=== PATIENT | male | born 1995 | race Caucasian/White ===

== ENCOUNTER 2017-09-03 09:53 | Emergency (ER) | payer SELFPAY ==
[2017-09-03 10:28] LABS: #Eosinphils 0.1 thou/uL (0.0-0.7); #Lymphocytes 1.9 thou/uL (1.20-3.40); #Monocytes 0.5 thou/uL (0.11-0.59); %Basophils 0.8 % (0.0-1.0); %Eosinophils 1.9 % (0.0-10.0); %Lymphocytes 28.6 % (21.0-51.0); %Monocytes 8.3 % (0.0-10.0); Hematocrit 50.5 % (42.0-52.0); Mean Platelet Volume 6.9 fL (7.4-10.4); White Blood Cell (WBC) Count 6.6 thou/uL (4.8-10.8)
[2017-09-03] MEDS ORDERED: Pantoprazole 40 MG VIAL ONE (10:38)
[2017-09-03] MEDS ORDERED: Morphine Sulfate 2 MG/ML SYRINGE ONE (10:38)
[2017-09-03] MEDS ORDERED: Ondansetron HCl/PF 4 MG/2 ML Vial ONE (10:38)
[2017-09-03 10:53] LABS: ALT (SGPT) 14 U/L (8-55); AST (SGOT) 11 U/L (5-34); Alkaline Phosphatase 78 U/L (40-150); Anion Gap 9 mmol/L (10-20); BUN (Urea Nitrogen) 13 mg/dL (8.9-20.6); Bilirubin, Total 0.6 mg/dL (0.2-1.2); Calc. Creatinine Clearance 0 mL/min (70-130); Calcium 10.1 mg/dL (7.8-10.44); Carbon Dioxide 32 mmol/L (22-29); Chloride 102 mmol/L (98-107); Estimated GFR-MDRD 88; Lipase 12 U/L (8-78); Protein, Total 7.3 g/dL (6.0-8.3)
[2017-09-03 11:16] LABS: Bilirubin Negative (Negative); Blood, Urine Negative (Negative); Glucose, Urine (Dipstick) Negative (Negative); Ketone, Urine Negative (Negative); Nitrite Negative (Negative); Protein, Urine (Dipstick) Negative (Neg-Trace); Urobilinogen 0.2 mg/dL (0.2-1.0)
--- NOTE | 2017-09-03 12:22 | CT ---
CT ABDOMEN AND PELVIS WITH CONTRAST: HISTORY: Worsening lower abdominal pain. FINDINGS: Lung bases are clear. No pericardial effusion. The appendix is visualized and is normal. There is mild thickening of the terminal ileum. There are also multiple areas of submucosal edema o f the proximal small bowel. Mild hyperenhancement of the mucosa of the sigmoid colon and rectum. The spleen, liver, gallbladder, pancreas, adrenal glands, and kidneys are unremarkable. The skeleton is unremarkable. IMPRESSION: 1. Mild mucosal irregularity of the terminal ileum with various areas of mucosal hyperenhancement o f the sigmoid colon and rectum can be seen with chronic inflammatory bowel disease. 2. Moderate submucosal edema and thickening of the wall of the proximal small bowel with some narro wing of the lumen which suggests enteritis. 3. Normal appendix and gallbladder. 4. No evidence of acute renal pathology. POS: [facility]
[2017-09-03] MEDS ORDERED: Dexamethasone 10 MG/ML VIAL ONE (12:53)
[2017-09-03] MEDS ORDERED: Iopamidol 370 76% 50 ML VIAL FS ONE (13:29)
[2017-09-03] MEDS ORDERED: ISOVUE-370 76%-LOCM 1 ML ONE (13:30)
== END 2017-09-03 13:00 | disposition home or self-care (01) ==
LOC: ERS 09:53
DX: K52.9 Noninfective gastroenteritis and colitis, unspecified (principal); J45.909 Unspecified asthma, uncomplicated
CPT/HCPCS: 74177; 80053; 81003; 83690; 85025; 96361; 96374; 96375; C9113; J1100; J2270; J2405

== ENCOUNTER 2017-09-07 19:29 | Emergency (ER) | payer SELFPAY ==
[2017-09-07] MEDS ORDERED: Morphine 2 MG/ML SYRINGE ONE (20:08)
[2017-09-07] MEDS ORDERED: Pantoprazole 40 MG VIAL ONE (20:09)
[2017-09-07] MEDS ORDERED: Ondansetron HCl/PF 4 MG/2 ML Vial ONE (20:09)
[2017-09-07 20:20] LABS: #Lymphocytes 1.2 thou/uL (1.20-3.40); #Monocytes 0.9 thou/uL (0.11-0.59); #Neutrophils 7.3 thou/uL (1.40-6.50); %Basophils 0.3 % (0.0-1.0); %Eosinophils 0.5 % (0.0-10.0); %Lymphocytes 12.9 % (21.0-51.0); %Monocytes 9.1 % (0.0-10.0); Hematocrit 51.1 % (42.0-52.0); Mean Platelet Volume 6.8 fL (7.4-10.4); Red Blood Cell (RBC) Count 5.56 mill/uL (4.70-6.10); White Blood Cell (WBC) Count 9.5 thou/uL (4.8-10.8)
[2017-09-07 20:29] LABS: Lactic Acid - Sepsis 1.9 mmol/L (0.5-2.2)
[2017-09-07 20:35] LABS: ALT (SGPT) 19 U/L (8-55); AST (SGOT) 9 U/L (5-34); Alkaline Phosphatase 80 U/L (40-150); Anion Gap 11 mmol/L (10-20); BUN (Urea Nitrogen) 20 mg/dL (8.9-20.6); Bilirubin, Total 0.6 mg/dL (0.2-1.2); Calc. Creatinine Clearance 0 mL/min (70-130); Calcium 9.5 mg/dL (7.8-10.44); Carbon Dioxide 30 mmol/L (22-29); Chloride 102 mmol/L (98-107); Estimated GFR-MDRD 74; Globulin 3.1 g/dL (2.4-3.5); Protein, Total 7.6 g/dL (6.0-8.3)
[2017-09-07 20:37] LABS: Lipase 12 U/L (8-78)
== END 2017-09-07 21:55 | disposition home or self-care (01) ==
LOC: ERS 19:29
DX: K58.9 Irritable bowel syndrome, unspecified (principal); K22.6 Gastro-esophageal laceration-hemorrhage syndrome; J45.909 Unspecified asthma, uncomplicated; Z79.899 Other long term (current) drug therapy
CPT/HCPCS: 80053; 83605; 83690; 85025; 86140; 86850; 86900; 86901; 96361; 96374; 96375; C9113; J2270; J2405

== ENCOUNTER 2017-09-28 08:11 | Emergency (ER) | payer SELFPAY ==
[2017-09-28 08:41] LABS: #Eosinphils 0.1 thou/uL (0.0-0.7); #Lymphocytes 1.4 thou/uL (1.20-3.40); #Monocytes 0.8 thou/uL (0.11-0.59); #Neutrophils 6.2 thou/uL (1.40-6.50); %Basophils 0.3 % (0.0-1.0); %Eosinophils 1.5 % (0.0-10.0); %Lymphocytes 16.6 % (21.0-51.0); %Monocytes 9.5 % (0.0-10.0); Hematocrit 46.1 % (42.0-52.0); Mean Platelet Volume 6.7 fL (7.4-10.4); Red Blood Cell (RBC) Count 5.04 mill/uL (4.70-6.10); White Blood Cell (WBC) Count 8.6 thou/uL (4.8-10.8)
[2017-09-28 08:52] LABS: ALT (SGPT) 11 U/L (8-55); AST (SGOT) 8 U/L (5-34); Alkaline Phosphatase 64 U/L (40-150); Anion Gap 14 mmol/L (10-20); BUN (Urea Nitrogen) 9 mg/dL (8.9-20.6); Calc. Creatinine Clearance 0 mL/min (70-130); Calcium 9.3 mg/dL (7.8-10.44); Carbon Dioxide 24 mmol/L (22-29); Chloride 105 mmol/L (98-107); Estimated GFR-MDRD Greater than 90; Globulin 2.6 g/dL (2.4-3.5); Lipase 7 U/L (8-78); Protein, Total 6.7 g/dL (6.0-8.3)
[2017-09-28] MEDS ORDERED: Dexamethasone 4 mg/ml Vial ONE (09:04)
[2017-09-28] MEDS ORDERED: Ketorolac Tromethamine 30 MG/ML VIAL ONE (09:04)
[2017-09-28] MEDS ORDERED: Morphine 10 MG/ML VIAL ONE (09:04)
[2017-09-28] MEDS ORDERED: Promethazine HCl 25 MG/ML VIAL ONE (09:04)
--- NOTE | 2017-09-28 10:15 | RAD ---
KUB: COMPARISON: None. HISTORY: Nausea and vomiting with abdominal pain. FINDINGS: An anterior view of the abdomen shows a nonspecific, nonobstructed bowel gas pattern. Air is seen t o the level of the rectum. No suspicious calcifications are present. IMPRESSION: Nonobstructed bowel gas pattern. POS: [facility]
== END 2017-09-28 10:06 | disposition home or self-care (01) ==
LOC: ERS 08:11
DX: K58.9 Irritable bowel syndrome, unspecified (principal); J45.909 Unspecified asthma, uncomplicated; F17.200 Nicotine dependence, unspecified, uncomplicated
CPT/HCPCS: 36415; 74000; 80053; 83690; 85025; 96365; 96375; J1100; J1885; J2270; J2550

== ENCOUNTER 2017-11-18 18:12 | Emergency (ER) | payer OTHER, SELFPAY ==
[~2017-11-18 18:12] MED LIST: ISOVUE-370 76%-LOCM 1 ML ONE
[2017-11-18 22:12] LABS: #Eosinphils 0.2 thou/uL (0.0-0.7); #Lymphocytes 2.4 thou/uL (1.20-3.40); #Monocytes 0.7 thou/uL (0.11-0.59); %Basophils 0.6 % (0.0-1.0); %Eosinophils 2.5 % (0.0-10.0); %Monocytes 10.9 % (0.0-10.0); Hemoglobin 14.2 g/dL (14.0-18.0); Mean Corpuscular HGB CONC 33.2 g/dL (32.0-36.0); Mean Corpuscular Hemoglobin 30.6 pg (27.0-31.0); Mean Corpuscular Volume 92.1 fl (80.0-94.0); Mean Platelet Volume 6.5 fL (7.4-10.4); Platelet Count 306 thou/uL (130-400); RBC Distribution Width 11.4 % (11.5-14.5); Red Blood Cell (RBC) Count 4.63 mill/uL (4.70-6.10); White Blood Cell (WBC) Count 6.3 thou/uL (4.8-10.8)
[2017-11-18] MEDS ORDERED: traMADol HCl 50 MG TAB ONE (22:21)
[2017-11-18] MEDS ORDERED: Ketorolac Tromethamine 30 MG/ML VIAL ONE (22:21)
[2017-11-18 22:35] LABS: ALT (SGPT) 13 U/L (8-55); AST (SGOT) 8 U/L (5-34); Albumin 4.2 g/dL (3.5-5.0); Alkaline Phosphatase 67 U/L (40-150); Anion Gap 11 mmol/L (10-20); BUN (Urea Nitrogen) 16 mg/dL (8.9-20.6); Bilirubin, Total 0.5 mg/dL (0.2-1.2); Calc. Creatinine Clearance 0 mL/min (70-130); Calcium 9.6 mg/dL (7.8-10.44); Carbon Dioxide 28 mmol/L (22-29); Chloride 104 mmol/L (98-107); Estimated GFR-MDRD Greater than 90; Globulin 2.6 g/dL (2.4-3.5); Glucose 97 mg/dL (70-105); Lipase 18 U/L (8-78); Potassium 4.2 mmol/L (3.5-5.1); Protein, Total 6.8 g/dL (6.0-8.3); Sodium 139 mmol/L (136-145)
--- NOTE | 2017-11-18 23:20 | RAD ---
EXAM: ONE VIEW CHEST HISTORY: Cough. COMPARISON: None. FINDINGS: Normal cardiac silhouette. Pulmonary vessels and hilum are normal. No consolidation or mass. No pn eumothorax or osseous abnormalities. IMPRESSION: No acute cardiopulmonary process. POS: [facility]
[2017-11-18 23:25] LABS: Bilirubin Negative (Negative); Blood, Urine Negative (Negative); Clarity CLEAR (Clear); Glucose, Urine (Dipstick) Negative (Negative); Leukocyte Negative (Negative); Nitrite Negative (Negative); Protein, Urine (Dipstick) Trace mg/dL (Neg-Trace); Specific Gravity, Urine 1.025 (1.002-1.036); pH, Urine 7.5 (5.0-9.0)
--- NOTE | 2017-11-19 00:43 | CT ---
EXAM: ABDOMEN CT WITH CONTRAST PELVIC CT WITH CONTRAST HISTORY: Abdominal pain. Five months ago, the patient was sick and had episodes of vomiting x2 months. Previ ous hemoptysis. Possible Crohn's disease. COMPARISON: 09/03/2017. TECHNIQUE: Abdomen and pelvic CT performed with IV contrast. Enteric contrast was not administered. Coronal re formatted images are submitted for interpretation. FINDINGS: ABDOMEN CT: Lung bases are clear. Heart size is within normal limits. No pericardial effusion. The descending thoracic aorta and the abdominal aorta have a normal caliber. No periaortic fat stranding. Intra- and extrahepatic portal vein is patent. Contracted gallbladder. The liver, spleen, pancreas, and adrenal glands have appropriate enhancement. No gastrohepatic, retrocrural, or periportal lymphadenopathy. No mesenteric mass, lymphadenopathy, free air, or free fluid. Symmetric enhancement of the kidneys. Bilaterally, no obstructive uropathy. Limited evaluation of the alimentary canal due to lack of oral contrast. Multiple prominent jejunal loops are noted with fecalization. Ileal loops as well as ileocecal junction are unremarkable. Norm al caliber appendix. Fecal material in a nondistended, nondilated colon. PELVIC CT: No mass, lymphadenopathy, or free air. Trace amount of free fluid in the pelvis is noted. Urinary b ladder is decompressed. IMPRESSION: 1. Prominent jejunal loops with fecalization. Partial obstructive process cannot be excluded. Eda nued surveillance. 2. Normal caliber appendix. POS: [facility]
== END 2017-11-19 01:01 | disposition home or self-care (01) ==
LOC: ERS 18:12
DX: K52.9 Noninfective gastroenteritis and colitis, unspecified (principal); Z87.891 Personal history of nicotine dependence; J45.909 Unspecified asthma, uncomplicated
CPT/HCPCS: 36415; 71045; 74177; 80053; 81003; 83605; 83690; 85025; 86140; 96374; J1885

== ENCOUNTER 2017-11-24 08:29 | Emergency (ER) | payer SELFPAY ==
[2017-11-24] MEDS ORDERED: Acetaminophen 500 MG TAB ONE (09:41)
[2017-11-24 10:44] LABS: ALT (SGPT) 13 U/L (8-55); AST (SGOT) 11 U/L (5-34); Albumin 4.7 g/dL (3.5-5.0); Alkaline Phosphatase 67 U/L (40-150); Anion Gap 14 mmol/L (10-20); BUN (Urea Nitrogen) 13 mg/dL (8.9-20.6); Bilirubin, Total 1.1 mg/dL (0.2-1.2); Calc. Creatinine Clearance 0 mL/min (70-130); Calcium 10.4 mg/dL (7.8-10.44); Carbon Dioxide 26 mmol/L (22-29); Chloride 104 mmol/L (98-107); Estimated GFR-MDRD Greater than 90; Glucose 95 mg/dL (70-105); Potassium 3.7 mmol/L (3.5-5.1); Protein, Total 7.7 g/dL (6.0-8.3); Sodium 140 mmol/L (136-145)
[2017-11-24 10:48] LABS: #Lymphocytes 0.2 thou/uL (1.20-3.40); #Monocytes 0.5 thou/uL (0.11-0.59); #Neutrophils 3.8 thou/uL (1.40-6.50); %Monocytes 9.9 % (0.0-10.0); %Neutrophils 84.1 % (42.0-75.0); Hemoglobin 15.3 g/dL (14.0-18.0); Mean Corpuscular Hemoglobin 29.9 pg (27.0-31.0); Mean Corpuscular Volume 90.8 fl (80.0-94.0); Mean Platelet Volume 7.4 fL (7.4-10.4); Platelet Count 207 thou/uL (130-400); RBC Distribution Width 11.5 % (11.5-14.5); Red Blood Cell (RBC) Count 5.12 mill/uL (4.70-6.10); White Blood Cell (WBC) Count 4.6 thou/uL (4.8-10.8)
[2017-11-24] MEDS ORDERED: Nitroglycerin 0.4 MG TAB (25 Tab Bottle) ONE (14:20)
== END 2017-11-24 11:36 | disposition home or self-care (01) ==
LOC: ERS 08:29
DX: J11.1 Influenza due to unidentified influenza virus with other respiratory manifestations (principal); J45.909 Unspecified asthma, uncomplicated; Z87.891 Personal history of nicotine dependence
CPT/HCPCS: 80053; 85025; 96360; 96361

== ENCOUNTER 2017-12-05 15:19 | Emergency (ER) | payer SELFPAY ==
[2017-12-05 16:08] LABS: #Basophils 0.1 thou/uL (0.0-0.2); #Eosinphils 0.1 thou/uL (0.0-0.7); #Monocytes 0.5 thou/uL (0.11-0.59); #Neutrophils 2.3 thou/uL (1.40-6.50); %Basophils 1.2 % (0.0-1.0); %Lymphocytes 39.7 % (21.0-51.0); %Monocytes 9.9 % (0.0-10.0); %Neutrophils 47.3 % (42.0-75.0); Mean Corpuscular HGB CONC 32.6 g/dL (32.0-36.0); Mean Corpuscular Hemoglobin 29.7 pg (27.0-31.0); Mean Platelet Volume 6.8 fL (7.4-10.4); Platelet Count 334 thou/uL (130-400); RBC Distribution Width 11.5 % (11.5-14.5); Red Blood Cell (RBC) Count 4.71 mill/uL (4.70-6.10); White Blood Cell (WBC) Count 4.9 thou/uL (4.8-10.8)
[2017-12-05 16:50] LABS: ALT (SGPT) 18 U/L (8-55); AST (SGOT) 9 U/L (5-34); Albumin 4.5 g/dL (3.5-5.0); Alkaline Phosphatase 65 U/L (40-150); Anion Gap 11 mmol/L (10-20); BUN (Urea Nitrogen) 12 mg/dL (8.9-20.6); Bilirubin, Total 0.6 mg/dL (0.2-1.2); Calc. Creatinine Clearance 0 mL/min (70-130); Calcium 9.9 mg/dL (7.8-10.44); Carbon Dioxide 30 mmol/L (22-29); Chloride 104 mmol/L (98-107); Estimated GFR-MDRD Greater than 90; Globulin 2.8 g/dL (2.4-3.5); Glucose 86 mg/dL (70-105); Lipase 15 U/L (8-78); Potassium 4.2 mmol/L (3.5-5.1); Protein, Total 7.3 g/dL (6.0-8.3); Sodium 141 mmol/L (136-145)
== END 2017-12-05 17:33 ==
LOC: ERS 15:19
DX: Z53.21 Procedure and treatment not carried out due to patient leaving prior to being seen by health care provider (principal)
CPT/HCPCS: 36415; 80053; 83690; 85025

== ENCOUNTER 2018-03-20 03:34 | Emergency (ER) | payer OTHER ==
[2018-03-20 05:21] LABS: #Eosinphils 0.1 thou/uL (0.0-0.7); #Lymphocytes 2.3 thou/uL (1.20-3.40); #Monocytes 0.7 thou/uL (0.11-0.59); #Neutrophils 2.5 thou/uL (1.40-6.50); %Basophils 0.8 % (0.0-1.0); %Eosinophils 2.5 % (0.0-10.0); %Lymphocytes 40.8 % (21.0-51.0); %Monocytes 11.6 % (0.0-10.0); %Neutrophils 44.4 % (42.0-75.0); Hemoglobin 13.9 g/dL (14.0-18.0); Mean Corpuscular HGB CONC 33.8 g/dL (32.0-36.0); Mean Corpuscular Hemoglobin 29.8 pg (27.0-31.0); Mean Corpuscular Volume 88.2 fl (80.0-94.0); Mean Platelet Volume 6.8 fL (7.4-10.4); Platelet Count 276 thou/uL (130-400); RBC Distribution Width 11.1 % (11.5-14.5); Red Blood Cell (RBC) Count 4.66 mill/uL (4.70-6.10); White Blood Cell (WBC) Count 5.7 thou/uL (4.8-10.8)
[2018-03-20 05:22] LABS: INR-International Normal Ratio 1.1; PTT 32.7 SEC (22.9-36.1); Prothrombin Time 14.7 SEC (12.0-14.7)
[2018-03-20 05:31] LABS: ALT (SGPT) 8 U/L (8-55); AST (SGOT) 8 U/L (5-34); Albumin 4.1 g/dL (3.5-5.0); Alkaline Phosphatase 79 U/L (40-150); Anion Gap 9 mmol/L (10-20); BUN (Urea Nitrogen) 12 mg/dL (8.9-20.6); Bilirubin, Total 0.6 mg/dL (0.2-1.2); Calc. Creatinine Clearance 0 mL/min (70-130); Calcium 9.1 mg/dL (7.8-10.44); Carbon Dioxide 30 mmol/L (22-29); Chloride 103 mmol/L (98-107); Estimated GFR-MDRD Greater than 90; Globulin 2.7 g/dL (2.4-3.5); Glucose 96 mg/dL (70-105); Protein, Total 6.8 g/dL (6.0-8.3); Sodium 138 mmol/L (136-145)
--- NOTE | 2018-03-20 12:39 | CT ---
PRELIMINARY REPORT/[facility]/EMERGENTY AFTER-HOURS PROCEDURE CT Abdomen and Pelvis With Intravenous Contrast CLINICAL HISTORY: 22 years old, male; Signs and symptoms; Other: Rectal bleeding; Patient HX: Siddhartha presents with his girlfriend for concern of bright red blood with bowel movement tonight. He reports he has been gettin g worked up outpatient for concern of crohn's vs. Ulcerative colitis vs. Stomach ulcer but has not be en able to have a complete colonoscopy. He was scheduled for one but was unable to tolerate it on con scious sedation at [facility] because they were unable to pass it beyond his rectum seconda ry to pain. TECHNIQUE: Axial computed tomography images of the abdomen and pelvis with intravenous contrast. All CT scans at this facility use one or more dose reduction techniques, viz.: automated exposure control; ma/kV adj ustment per patient size (including targeted exams where dose is matched to indication; i.e. head); or iterative reconstruction technique. Coronal reformatted images were created and reviewed. CONTRAST: 100 mL of ISOVUE 370 administered intravenously. COMPARISON: No relevant prior studies available. FINDINGS: Lung bases: Unremarkable. No mass. No consolidation. ABDOMEN: Liver: Unremarkable. No mass. Gallbladder and bile ducts: Unremarkable. No calcified stones. No ductal dilation. Pancreas: Unremarkable. No mass. No ductal dilation. Spleen: Unremarkable. No splenomegaly. Adrenals: Unremarkable. No mass. Kidneys and ureters: Unremarkable. No solid mass. No hydronephrosis. Stomach and bowel: There are approximately 4 small bowel loops within the left upper quadrant that re veal mucosal thickening but no pericolonic fat stranding. This is nonspecific and could be spasm vers us mild segmental enteritis. No obstruction. No colonic mucosal edema appreciated. PELVIS: Appendix: The appendix is normal. Bladder: Unremarkable. No mass. Reproductive: Unremarkable as visualized. ABDOMEN and PELVIS: Intraperitoneal space: Unremarkable. No free air. No significant fluid collection. Bones/joints: No acute fracture. No dislocation. Soft tissues: Unremarkable. Vasculature: Unremarkable. No abdominal aortic aneurysm. Lymph nodes: Unremarkable. No enlarged lymph nodes. IMPRESSION: 1. There are approximately 4 small bowel loops within the left upper quadrant that reveal mucosal thi ckening but no pericolonic fat stranding. This is nonspecific and could be spasm versus mild segmenta l enteritis. 2. Otherwise no acute intra-abdominal process. This interpretation was based upon the receipt of 235 image(s). Thank you for allowing us to participate in the care of your patient. Dictated and Authenticated by: Oz Oneill DO 03/20/2018 7:25 AM Central Time ([place] & [place]) FINAL REPORT CT ABDOMEN AND PELVIS: Date: 03/20/18 Multiple axial tomograms obtained through abdomen and pelvis with IV enhancement. FINDINGS: Liver, spleen, pancreas, and kidneys are unremarkable. There is mild mural thickening and distention of proximal small bowel loops in the left upper abdomen and noted on the preliminary report. This is a nonspecific finding as noted on the preliminary report. No other significant abnormality. I am in agreement with the preliminary report issued by [facility]. POS: [facility]
[2018-03-20] MEDS ORDERED: ISOVUE-370 76%-LOCM 1 ML ONE (20:18)
== END 2018-03-20 08:20 | disposition home or self-care (01) ==
LOC: ERS 03:34
DX: K62.5 Hemorrhage of anus and rectum (principal); J45.909 Unspecified asthma, uncomplicated; Z87.891 Personal history of nicotine dependence
CPT/HCPCS: 36415; 74177; 80053; 85025; 85610; 85730

== ENCOUNTER 2018-09-02 09:05 | Emergency (ER) | payer OTHER, SELFPAY | END 2018-09-02 12:00 | disposition home or self-care (01) | LOC: ERS 09:05 | DX: B34.9 Viral infection, unspecified (principal); J45.909 Unspecified asthma, uncomplicated; F17.210 Nicotine dependence, cigarettes, uncomplicated; Z79.1 Long term (current) use of non-steroidal anti-inflammatories (NSAID); Z79.899 Other long term (current) drug therapy | CPT/HCPCS: 87081; 87430; 87804; 99283 ==

== ENCOUNTER 2018-11-29 17:20 | Emergency (ER) | payer OTHER, SELFPAY ==
[~2018-11-29 17:20] MED LIST changes: -ISOVUE-370 76%-LOCM 1 ML ONE; +Iopamidol 370 76% 100 ML VIAL ONE
[2018-11-29] MEDS ORDERED: Ketorolac Tromethamine 30 MG/ML VIAL ONE (19:05)
[2018-11-29] MEDS ORDERED: Ondansetron PF 4 MG/2 ML Vial ONE (19:05)
[2018-11-29 19:11] LABS: #Basophils 0.1 thou/uL (0.0-0.2); #Eosinphils 0.1 thou/uL (0.0-0.7); #Lymphocytes 1.5 thou/uL (1.20-3.40); #Monocytes 0.6 thou/uL (0.11-0.59); #Neutrophils 5.8 thou/uL (1.40-6.50); %Basophils 0.8 % (0.0-1.0); %Lymphocytes 18.5 % (21.0-51.0); %Monocytes 6.8 % (0.0-10.0); %Neutrophils 72.9 % (42.0-75.0); Hemoglobin 16.3 g/dL (14.0-18.0); Mean Corpuscular HGB CONC 34.2 g/dL (32.0-36.0); Mean Corpuscular Hemoglobin 30.9 pg (27.0-31.0); Mean Corpuscular Volume 90.3 fL (78.0-98.0); Mean Platelet Volume 7.2 fL (7.4-10.4); Platelet Count 292 thou/uL (130-400); RBC Distribution Width 11.5 % (11.5-14.5); Red Blood Cell (RBC) Count 5.29 mill/uL (4.70-6.10)
[2018-11-29 19:34] LABS: ALT (SGPT) 14 U/L (8-55); AST (SGOT) 9 U/L (5-34); Alkaline Phosphatase 87 U/L (40-150); Anion Gap 14 mmol/L (10-20); BUN (Urea Nitrogen) 13 mg/dL (8.9-20.6); Bilirubin, Total 0.6 mg/dL (0.2-1.2); Calc. Creatinine Clearance 0 mL/min (70-130); Calcium 10.2 mg/dL (7.8-10.44); Carbon Dioxide 26 mmol/L (22-29); Chloride 105 mmol/L (98-107); Estimated GFR-MDRD Greater than 90; Globulin 3.2 g/dL (2.4-3.5); Glucose 90 mg/dL (70-105); Potassium 4.4 mmol/L (3.5-5.1); Protein, Total 8.2 g/dL (6.0-8.3); Sodium 141 mmol/L (136-145)
[2018-11-29 19:43] LABS: Bilirubin Negative (Negative); Blood, Urine Negative (Negative); Clarity CLEAR (Clear); Glucose, Urine (Dipstick) Negative (Negative); Leukocyte Negative (Negative); Nitrite Negative (Negative); Protein, Urine (Dipstick) Negative (Neg-Trace); Specific Gravity, Urine 1.006 (1.002-1.036); Urobilinogen 0.2 mg/dL (0.2-1.0)
--- NOTE | 2018-11-29 21:51 | RAD ---
FOUR VIEWS LEFT KNEE: Date: 11-29-18 Comparison: None. History: Injury, trauma, pain. FINDINGS: No knee joint effusion, displaced fracture, or evidence of dislocation. IMPRESSION: No acute findings. POS: [facility]
--- NOTE | 2018-11-29 21:59 | CT ---
CT ABDOMEN AND PELVIS: Date: 11-29-18 Comparison: 03-20-18 History: Abdominal pain, back pain, injury. Technique: Axial CT imaging at 5 mm intervals from lung bases through pubic symphysis with IV contras t. Coronal reformatted imaging obtained. FINDINGS: The imaged lung bases appear unremarkable. There is no free intraperitoneal air. The liver, spleen, gallbladder, pancreas, adrenal glands, and kidneys appear unremarkable. Evaluation of the bowel is suboptimal secondary to lack of oral contrast media. Visualized portions o f the appendix appear unremarkable. No evidence for bowel obstruction. The vascular structures of the abdomen and pelvis appear unremarkable. No abdominal or pelvic lymphad enopathy. No acute osseous abnormality is noted. Stable sclerotic focus noted in the medial aspect of the iliac bone on image 50. IMPRESSION: No acute findings. POS: [facility]
== END 2018-11-29 21:09 | disposition home or self-care (01) ==
LOC: ERS 17:20
DX: S39.012A Strain of muscle, fascia and tendon of lower back, initial encounter (principal); S80.02XA Contusion of left knee, initial encounter; J45.909 Unspecified asthma, uncomplicated; Z87.891 Personal history of nicotine dependence; V43.52XA Car driver injured in collision with other type car in traffic accident, initial encounter
CPT/HCPCS: 36415; 74177; 80053; 81003; 85025; 96374; 96375; J1885; J2405

== ENCOUNTER 2024-04-15 17:06 | Emergency (ER) | payer BC, OTHER ==
[2024-04-15] MEDS ORDERED: LORazepam 2 MG/ML SYR.(CARPUJECT) ONE (17:36)
[2024-04-15] MEDS ORDERED: Ketorolac Tromethamine 30 MG (1 mL) VIAL ONE (17:36)
== END 2024-04-15 18:35 | disposition home or self-care (01) ==
LOC: ERS 17:06
DX: S06.0X9A Concussion with loss of consciousness of unspecified duration, initial encounter (principal); S50.11XA Contusion of right forearm, initial encounter; F17.290 Nicotine dependence, other tobacco product, uncomplicated; Y04.8XXA Assault by other bodily force, initial encounter
CPT/HCPCS: 70450; 71045; 72125; 96374; 96375; J1885; J2060